=== PATIENT | female | born 1975 | race Hispanic/Latino ===

== ENCOUNTER 2019-06-17 09:35 | Outpatient (CLI) | payer OTHER ==
--- NOTE | 2019-06-17 11:50 | ULT ---
OB ULTRASOUND: DATE: 06/17/2019. PROVIDED CLINICAL HISTORY: anatomy. FINDINGS: A single live intrauterine gestation is documented in vertex presentation with heart rate of 136 b.p. m. documented. Estimated gestational age based on today's examination is 20 weeks 1 day. Estimated weight is 320 +/- 47 grams. The placenta is anteriorly located without evidence for previa. A mniotic fluid index is 14.7. anatomic survey demonstrates a normal appearance to the head, fac e, spine, 4-chamber heart, stomach situs, kidneys, bladder, umbilical cord and cord insertion, upper and lower extremities. The cerebellum and cisterna magna were not visualized. Cervical length appea rs adequate. Biometry: BPD 4.7 cm, 20 weeks 1 day Head circumference 17.7 cm, 20 weeks 2 days Abdominal circumference 14.4 cm, 19 weeks 6 days Femur length 3.2 cm, 20 weeks 0 days IMPRESSION: Single live intrauterine gestation, 20 weeks 1 day by ultrasound. Normal anatomy as visualized . POS: [facility]
== END 2019-06-17 09:36 | disposition home or self-care (01) ==
LOC: BICULT 09:35
PROVIDERS: ATTEND Family Medicine
DX: O09.522 Supervision of elderly multigravida, second trimester (principal); Z3A.20 20 weeks gestation of pregnancy
CPT/HCPCS: 76805

== ENCOUNTER 2022-03-24 19:39 | Emergency (ER) | payer OTHER ==
[2022-03-24] MEDS ORDERED: Morphine 4 MG/ML VIAL ONE (19:54)
[2022-03-24] MEDS ORDERED: Ondansetron PF 4 MG/2 ML Vial ONE (19:55)
[2022-03-24] MEDS ORDERED: Mag-Al 1200 mg/1200 mg/30 ML UDCUP ONE (19:55)
[2022-03-24] MEDS ORDERED: Pantoprazole 40 MG VIAL ONE (19:55)
[2022-03-24] MEDS ORDERED: Lidocaine Viscous Sol 2% 15 ml UD Cup ONE (19:55)
[2022-03-24 20:33] LABS: #Eosinphils 0.4 thou/uL (0.0-0.7); #Lymphocytes 2.9 thou/uL (1.20-3.40); #Monocytes 0.7 thou/uL (0.11-0.59); %Basophils 0.1 % (0.0-1.0); %Eosinophils 3.7 % (0.0-10.0); %Lymphocytes 26.7 % (21.0-51.0); %Monocytes 6.2 % (0.0-10.0); %Neutrophils 63.4 % (42.0-75.0); BHCG - Serum Negative (NEGATIVE); Hemoglobin 12.1 g/dL (12.0-16.0); Mean Corpuscular HGB CONC 31.4 g/dL (32.0-36.0); Mean Corpuscular Hemoglobin 26.8 pg (27.0-31.0); Mean Corpuscular Volume 85.5 fl (78.0-98.0); Mean Platelet Volume 9.5 fL (7.4-10.4); Platelet Count 263 10x3/uL (130-400); Pregs Control Background? CLEAR/WHITE (CLR/WHITE); Pregs Control Bar Appear? YES (CONTROL BAR); RBC Distribution Width 14.2 % (11.5-14.5)
[2022-03-24 20:55] LABS: ALT (SGPT) 14 U/L (8-55); AST (SGOT) 13 U/L (5-34); Albumin 3.8 g/dL (3.5-5.0); Alkaline Phosphatase 112 U/L (40-110); Anion Gap 10 mmol/L (10-20); BUN (Urea Nitrogen) 14 mg/dL (7.0-18.7); Bilirubin, Total 0.4 mg/dL (0.2-1.2); CK (CPK) 25 U/L (29-168); Calc. Creatinine Clearance 0 mL/min (70-130); Calcium 9.2 mg/dL (7.8-10.44); Carbon Dioxide 29 mmol/L (22-29); Chloride 103 mmol/L (98-107); Estimated GFR 106; Globulin 2.9 g/dL (2.4-3.5); Glucose 91 mg/dL (70-105); Lipase 58 U/L (8-78); Potassium 3.7 mmol/L (3.5-5.1); Protein, Total 6.7 g/dL (6.0-8.3); Sodium 138 mmol/L (136-145)
== END 2022-03-24 21:38 | disposition home or self-care (01) ==
LOC: ERS 19:39
DX: K21.9 Gastro-esophageal reflux disease without esophagitis (principal); D72.829 Elevated white blood cell count, unspecified
CPT/HCPCS: 71045; 80053; 82550; 83690; 84484; 84703; 85025; 93005; 96374; 96375; C9113; J2270; J2405

== ENCOUNTER 2023-04-30 15:24 | Emergency (ER) | payer OTHER, SELFPAY ==
[~2023-04-30 15:24] MED LIST: Iopamidol-370 76% 500 ML MDV (1 ML CHARGE) ONE
[2023-04-30] MEDS ORDERED: Pantoprazole 40 MG VIAL ONE (15:44)
[2023-04-30] MEDS ORDERED: Famotidine/PF 20 mg/2ml Vial ONE (15:44)
[2023-04-30 16:09] LABS: #Eosinphils 0.4 thou/uL (0.0-0.7); #Monocytes 0.5 thou/uL (0.11-0.59); #Neutrophils 4.9 thou/uL (1.40-6.50); %Basophils 0.3 % (0.0-1.0); %Eosinophils 5.2 % (0.0-10.0); %Lymphocytes 22.3 % (21.0-51.0); %Monocytes 6.8 % (0.0-10.0); %Neutrophils 65.3 % (42.0-75.0); Hematocrit 34.1 % (36.0-47.0); Hemoglobin 10.5 g/dL (12.0-16.0); Mean Corpuscular HGB CONC 30.8 g/dL (32.0-36.0); Mean Corpuscular Hemoglobin 24.2 pg (27.0-31.0); Mean Corpuscular Volume 78.8 fl (78.0-98.0); Mean Platelet Volume 11.2 fL (7.4-10.4); Platelet Count 322 10x3/uL (130-400); RBC Distribution Width 16.6 % (11.5-14.5); Red Blood Cell (RBC) Count 4.33 mill/uL (4.20-5.40); White Blood Cell (WBC) Count 7.5 10x3/uL (4.8-10.8)
[2023-04-30] MEDS ORDERED: Ketorolac Tromethamine 30 MG (1 mL) VIAL ONE (16:15)
[2023-04-30] MEDS ORDERED: Dicyclomine 20 MG TAB ONE (16:15)
[2023-04-30 16:23] LABS: BHCG - Serum Negative (NEGATIVE); Pregs Control Background? CLEAR/WHITE (CLR/WHITE); Pregs Control Bar Appear? YES (CONTROL BAR)
[2023-04-30 16:28] LABS: ALT (SGPT) 12 U/L (8-55); AST (SGOT) 16 U/L (5-34); Albumin 3.8 g/dL (3.5-5.0); Alkaline Phosphatase 111 U/L (40-110); Anion Gap 12 mmol/L (10-20); BUN (Urea Nitrogen) 16 mg/dL (7.0-18.7); Bilirubin, Total 0.5 mg/dL (0.2-1.2); Calc. Creatinine Clearance 0 mL/min (70-130); Carbon Dioxide 23 mmol/L (22-29); Chloride 106 mmol/L (98-107); Estimated GFR 100; Globulin 3.2 g/dL (2.4-3.5); Glucose 98 mg/dL (70-105); Lipase 25 U/L (8-78); Sodium 137 mmol/L (136-145)
[2023-04-30 16:32] LABS: Troponin I Less than 0.010 ng/mL (< 0.028)
== END 2023-04-30 17:55 ==
LOC: ERS 15:24
DX: R10.13 Epigastric pain (principal); R11.2 Nausea with vomiting, unspecified
CPT/HCPCS: 74177; 80053; 83690; 84484; 84703; 85025; 93005; 96361; 96374; 96375; C9113; J1885; Q9967; S0028